=== PATIENT | male | born 1960 | race African-American/Black ===

== ENCOUNTER 2016-11-08 19:41 | Emergency (ER) | payer OTHER ==
--- NOTE | ~2016-11-08 | CR262 ---
[facility] A Service of [facility] & [facility] RADIOLOGY TEXT RESULTS PATIENT: DARWIN SHIRLEY LOCATION: [facility] : 62 UNIT #: [id number] AGE: [address]: Nick Lorenzana MD SEX: M ORDER DR: [id number] [facility] [address] [facility]. [place], [place] [address] [id number] MR#: [id number] Acc #: [id number] NAME: DARWIN SHIRLEY : 1960 SEX: M STUDY DATE/TIME: 11/08/2016 21:57 UNIT: [facility] ROOM: STUDY DESCRIPTION: CR Toe 2 Views Great Lt Attending Physician: Nick Lorenzana M.D. Ordering Physician: Nick Lorenzana M.D. Primary Care Physician: Primary Care Physician No MEDICAL IMAGING REPORT This report is preliminary unless electronic signature is present EXAM Left great toe 11/08/2016 at 21:57 INDICATION Toe turned black and is painful for a few days. FINDINGS 3 views of the left great toe were obtained. No fracture or malalignment is seen. There is no soft tissue gas. There is no evidence of osteomyelitis. IMPRESSION Negative left great toe. Dictated by... Korey Lopez Jr., M.D. THIS IS AN ELECTRONICALLY VERIFIED REPORT Korey Lopez Jr., M.D. at 11/09/2016 9:22 PM ALEJANDRA/lorena TD: 11/09/2016 14:21 JOB #: [id number] MEDICAL IMAGING REPORT Page 1 of 1 COPY
[~2016-11-08 19:41] MED LIST: ACULAR10 ML OD; BENADRYL PO; BP MED; COUMADIN PO; ELIMITE60 GM TOP; GAS-X166 MG; HYDROCODONE-APA1 T33; IBUPROFEN; IBUPROFEN PO; LORTAB 7.5-5001 TAB PO; MUSCLE RELAXER; NITROGLYCERIN0.4 MG; NORCO 5/325 TAB1 TAB PO; PHENERGAN PO; PLAVIX PO; PRILOSEC PO; VICODIN 5/500 T1 TAB PO; [UNRECOGNIZED DRUG - REMARK]
== END 2016-11-08 22:48 | disposition home or self-care (01) ==
LOC: CED 19:41
DX: L60.0 Ingrowing nail (principal); I25.10 Atherosclerotic heart disease of native coronary artery without angina pectoris; Z88.5 Allergy status to narcotic agent; Z88.8 Allergy status to other drugs, medicaments and biological substances
CPT/HCPCS: 73660; 99283